=== PATIENT | female | born 1970 | race African-American/Black ===

== ENCOUNTER 2016-12-16 15:48 | Emergency (ER) | payer MEDICARE, BC ==
[~2016-12-16 15:48] MED LIST: ACETAMINOPHEN PO; ADVAIR 250-501 EACH IH; AMLODIPINE BESY10 MG PO; BENADRYL PO; DARVOCET-N 1001 TAB PO; FERROUS SULFATE1 TAB PO; KEFLEX PO; KEFLEX500 MG PO; LISINOPRIL PO; LYRICA PO; NEURONTIN PO; PHENERGAN25 MG PO; PREVACID PO; PREVACID15 MG PO; PRILOSEC PO; ROBAXIN PO; TRAMADOL HCL50 M1 PO; ULTRACET TABLET1 TAB PO; ZYRTEC PO; ZYRTEC5 MG PO
[2016-12-16 16:24] LABS: POC - CKMB 2.5 ng/mL (0.0-7.9); POC - TROPONIN <0.05 ng/mL (<=0.05)
== END 2016-12-16 17:35 | disposition home or self-care (01) ==
LOC: CED 15:48
DX: I46.9 Cardiac arrest, cause unspecified (principal); Z88.2 Allergy status to sulfonamides; Z88.5 Allergy status to narcotic agent; Z88.8 Allergy status to other drugs, medicaments and biological substances
CPT/HCPCS: 82553; 82947; 84484; 92950; 94002; 96374; 99291; J0171; J0461